=== PATIENT | female | born 1985 | race Caucasian/White ===

== ENCOUNTER 2016-11-23 22:47 | Emergency (ER) | payer MEDICAID ==
[2016-11-23 23:07] VITALS: BP 134/82
== END 2016-11-23 23:55 | disposition left against medical advice (07) ==
LOC: EDSTATUS 22:47 → ER 22:47
DX: Z53.21 Procedure and treatment not carried out due to patient leaving prior to being seen by health care provider (principal)

== ENCOUNTER 2017-02-11 14:45 | Outpatient (CLI) | payer MEDICAID ==
--- NOTE | 2017-02-11 16:01 | Non Stress Test Report ---
Non Stress Test Datetime Report Generated by CPN: 02/11/2017 16:01 DEMOGRAPHIC EGA NST: 35.0 INDICATION Indication for Study: Ordered by Provider Indication for Study (NST) Other: twins VITAL SIGNS Temperature - NST: 98.1 NBPSYS NST: 130 NBPDIA NST: 86 MONITORING Monitor Explained: Monitor Explained; Test Explained; Patient Verbalized Understanding Time on Monitor: 02/11/2017 15:00 Time off Monitor: 02/11/2017 15:45 NST Duration: 45 NST INTERVENTIONS NST Interventions: PO Hydration; Reposition Patient Physician Notified NST: Sue Rogers, CNM BABY A: [id number] BABY A Movement : Present Contraction Frequency : irr FHR Baseline : 130 Accelerations : 15X15 Decelerations : None Variability : Moderate 6-25bpm NST Review: Meets Criteria for Reactive NST NST Review and Verified By : RENNY Campbell Results: Reactive BABY B Movement: Present FHR Baseline: 140 Accelerations: 15X15 Decelerations: None Variability: Moderate 6-25bpm NST Review: Meets Criteria for Reactive NST NST Reviewed And Verified By: RENNY Campbell Results: Reactive NST REPORT Report Trigger: Send Report
== END 2017-02-11 16:05 | disposition home or self-care (01) ==
LOC: LC 14:45
PROVIDERS: ATTEND Obstetrics & Gynecology
PROC: 4A1HXCZ Monitoring of Products of Conception, Cardiac Rate, External Approach (ICD-10-PCS; principal; 2017-02-11)
PROC: 4A1HXCZ Monitoring of Products of Conception, Cardiac Rate, External Approach (ICD-10-PCS; 2017-02-11)
DX: O30.003 Twin pregnancy, unspecified number of placenta and unspecified number of amniotic sacs, third trimester (principal); Z3A.35 35 weeks gestation of pregnancy
CPT/HCPCS: 59025

== ENCOUNTER 2017-02-26 10:37 | Inpatient (IN) | payer MEDICAID ==
[2017-02-26] MEDS ORDERED: RINGERS SOLUTION,LACTATED 1,000 ML IV ONE (11:13)
[2017-02-26] MEDS ORDERED: RINGERS SOLUTION,LACTATED 1,000 ML IV PRN (11:16)
[2017-02-26] MEDS ORDERED: OXYTOCIN/NORMAL SALINE 20 UNIT/1,000 ML RTUINJ IV PRN ×2 (11:16→22:08)
[2017-02-26 11:22] LABS: APPEARANCE,URINE CLEAR; BILIRUBIN,URINE NEGATIVE (NEGATIVE); GLUCOSE, URINE NEGATIVE (NEGATIVE); KETONES,URINE NEGATIVE (NEGATIVE); LEUKOCYTE ESTERASE,URINE TRACE (NEGATIVE); NITRITE,URINE NEGATIVE (NEGATIVE); PROTEIN,URINE NEGATIVE (NEGATIVE); URINE SPECIFIC GRAVITY 1.003; UROBILINOGEN,URINE NEGATIVE mg/dL (<2.0)
[2017-02-26 11:38] LABS: URINE BARBITURATES SCREEN NEGATIVE; URINE METHADONE SCREEN NEGATIVE; URINE OPIATES LOW NEGATIVE; URINE PHENCYCLIDINE SCREEN NEGATIVE
[2017-02-26 12:05] LABS: ABSOLUTE EOSINOPHILS # (AUTO) 0.1 10^3/uL (0.0-0.6); ABSOLUTE LYMPHOCYTES (AUTO) 1.2 10^3/uL (0.5-4.7); ABSOLUTE MONOCYTES (AUTO) 0.6 10^3/uL (0.1-1.4); ABSOLUTE NEUT (AUTO) 4.8 10^3/uL (1.7-8.2); BASOPHILS % (AUTO) 0.4 % (0-2); EOSINOPHILS % (AUTO) 1.1 % (0-6); HEMATOCRIT 27.6 % (36.0-47.0); HEMOGLOBIN 9.2 g/dL (12.0-15.5); LYMPHOCYTES % (AUTO) 17.7 % (13-45); MEAN CORPUSCULAR HEMOGLOBIN 24.4 pg (27.0-33.4); MEAN CORPUSCULAR HGB CONC 33.4 g/dL (32.0-36.0); MEAN CORPUSCULAR VOLUME 73 fl (80-97); MONOCYTES % (AUTO) 9.3 % (3-13); RED BLOOD COUNT 3.78 10^6/uL (3.72-5.28); RED CELL DISTRIBUTION WIDTH 17.3 % (11.5-14.0); SEGMENTED NEUTROPHILS % (AUTO) 71.5 % (42-78); WHITE BLOOD COUNT 6.7 10^3/uL (4.0-10.5)
[2017-02-26] MEDS ORDERED: OXYTOCIN/NORMAL SALINE 0 UNIT/0 ML RTUINJ ONE (12:12)
[2017-02-26 12:25] LABS: ALANINE AMINOTRANSFERASE 25 U/L (9-52); ALKALINE PHOSPHATASE 121 U/L (38-126); ANION GAP 7 (5-19); ASPARTATE AMINO TRANSFERASE 22 U/L (14-36); BILIRUBIN,DIRECT 0.3 mg/dL (0.0-0.4); BILIRUBIN,TOTAL 0.3 mg/dL (0.2-1.3); BLOOD UREA NITROGEN 6 mg/dL (7-20); CALCIUM 8.8 mg/dL (8.4-10.2); CARBON DIOXIDE 22 mmol/L (22-30); CHLORIDE 107 mmol/L (98-107); CREATININE RESULT 0.47 mg/dL (0.52-1.25); GLUCOSE 67 mg/dL (75-110); LDH 395 U/L (313-618); SODIUM 136.1 mmol/L (137-145); TOTAL PROTEIN 5.4 g/dL (6.3-8.2)
[2017-02-26 12:56] LABS: URINE CREATININE 31.5 mg/dL (16-327); URINE PROTEIN 20.7 mg/dL (<12)
[2017-02-26] MEDS ORDERED: FENTANYL/BUPIVACAINE/NS/PF 200 MCG/100 ML RTUINJ EPI ONE (15:54)
[2017-02-26] MEDS ORDERED: EPHEDRINE SULFATE INJ 50 MG/1 ML AMPULE ONE (15:54)
[2017-02-26] MEDS ORDERED: BUPIVACAINE HCL 0.25 % INJ/PF (2.5 MG/1 ML) 30 ML VIAL ONE (15:54)
[2017-02-26] MEDS ORDERED: MISOPROSTOL 0.2 MG TABLET ONE (15:55)
[2017-02-26] MEDS ORDERED: LIDOCAINE 1% INJ-PF (10 MG/ML) 30 ML SDV ONE (15:55)
[2017-02-26] MEDS ORDERED: OXYTOCIN/NORMAL SALINE 20 UNIT/1,000 ML RTUINJ ONE (15:55)
[2017-02-26] MEDS ORDERED: LIDOCAINE 2% INJ-PF (20 MG/ML) 10 ML AMPUL ONE (19:15)
--- NOTE | 2017-02-26 19:16 | L&D Progress Notes ---
PROGRESS NOTES Datetime Report Generated by CPN: 02/26/2017 19:15 PROGRESS NOTE Impression: Normal Progression of Labor Impression: Normal Progression of Labor; Rupture of Membranes Procedures: Sterile Vag Exam Procedures: Sterile Vag Exam Procedures- Other: SROM with SVE Plan: Continue Present Management; Induction Informed Consent Obtained: Vaginal Delivery; Induction of Labor; Risks, Benefits and Alternatives Discussed Vital Signs : Reviewed; Within Normal Limits Comment: US to confirm presentation. Pt just recieved epidural and is comfortable. Cvx change noted. Anticipate . Reviewed risks of TIUP delivery including need for urgent c/s and risk of head entrapment if baby B converts to breech and unable to vert prior to entering canal. Pt verbalized understanding. VAGINAL EXAM Dilatation: 4 Dilatation: 2 Effacement: 60 Effacement: 60 Station: -2 Station: -1 Contractions: q 3-4 Contractions: rare MEMBRANES Membranes: Intact FETUS A FHR - Baseline: 130 Monitoring: External US Variability: Moderate 6-25bpm Accelerations: 15X15 Decelerations: None Estimated Weight (gm): 2800 Presentation: Vertex FETUS B FHR - Baseline: 135 Monitoring: External US Variability: Moderate 6-25bpm Accelerations: 15X15 Decelerations: None FHR Category: Category I FHR Comments: CAT I Estimated Weight (gm): 3000 Presentation: Vertex Presentation: Vertex SIGNATURE SIGNATURE: [id number] SIGNATURE: [id number] Signature: with User ID: [email or web address]
[2017-02-26] MEDS ORDERED: OXYTOCIN 10 UNIT/ML VIAL ONE (19:25)
[2017-02-26] MEDS ORDERED: LOPERAMIDE HCL 2 MG CAPSULE ONE (19:25)
[2017-02-26] MEDS ORDERED: CARBOPROST TROMETHAMINE INJ 250 MCG/1 ML AMPULE ONE (19:26)
--- NOTE | 2017-02-26 21:22 | Delivery Summary ---
Del Sum A-C Datetime Report Generated by CPN: 02/26/2017 21:22 DELIVERY PERSONNEL DELIVERY PERSONNEL: [id number] Delivery Doctor:: Cony George MD Labor and Delivery Nurse:: Aaliyah Stoddard RN Labor and Delivery Nurse:: Radha Trevino RN Automotive Product Specialist:: Marybeth Mckeon RN Nursery Nurse:: Shahida Argueta RN MSN Nursery Nurse:: Angela Ennis RN Metal Fabricator/ARMATURE WINDER REPAIRER: [facility] Metal Fabricator/ARMATURE WINDER REPAIRER: [facility] Additional Personnel: : Jael Torres RN MATERNAL INFORMATION Delivery Anesthesia: Epidural Medications After Delivery: Pitocin Drip 20 Units/1000ml NSS; Other-Please Comment Meds After Delivery Comment: Cytotec 1000mcg per rectum Maternal Complications: Other Other Maternal Complications: Twins LABOR SUMMARY EDC: 03/18/2017 00:00 No. Babies in Womb: 2 Attempted: No Labor Anesthesia: Epidural LABOR INFORMATION Reason for Induction: Other Reason for Induction- Other: DC/DA TIUP (Annotations: Data stored by [facility] on behalf of user) Onset of Labor: 02/26/2017 15:43 Complete Dilatation: 02/26/2017 19:44 Oxytocin: Induction Group B Beta Strep: Negative Antibiotics # of Doses: 0 Steroids Given: None Reason Steroids Not Administered: Not Applicable MEMBRANES Membranes Rupture Method: Spontaneous Rupture of Membranes: 02/26/2017 17:36 Length of Rupture (hr): 2.37 Amniotic Fluid Color: Clear Amniotic Fluid Amount: Small Amniotic Fluid Odor: Normal STAGES OF LABOR Stage 1 hr: 4 Stage 1 min: 1 Stage 2 hr: 0 Stage 2 min: 14 Stage 3 hr: 0 Stage 3 min: 7 Total Time in Labor hr: 4 Total Time in Labor min: 22 VAGINAL DELIVERY Episiotomy: None Laceration Extension #1: N/A Laceration Repair: Not Applicable Sponge Count Correct: N/A Sharps Count Correct: N/A CSECTION DELIVERY Primary Indication: N/A Secondary Indication: N/A CSection Incidence: N/A Labor: N/A Elective: N/A CSection Incision: N/A BABY A INFORMATION Infant Delivery Date/Time: 02/26/2017 19:58 Method of Delivery: Vaginal Born in Route : No : N/A Forceps: N/A Vacuum Extraction: N/A Shoulder Dystocia : No PRESENTATION/POSITION BABY A Presentation: Cephalic Cephalic Presentation: Vertex Vertex Position: Left Occipital Anterior Breech Presentation: N/A PLACENTA INFORMATION BABY A Placenta Delivery Time : 02/26/2017 20:05 Placenta Method of Delivery: Spontaneous Placenta Status: Delivered SCORES BABY A Heart Rate 1 min: >100 bpm Resp Effort 1 min: Good Cry Reflex Irritability 1 min: Cough or Sneeze or Pulls Away Muscle Tone 1 min: Active Motion Color 1 min: Blue/Pale SCORE 1 MIN: 8 Heart Rate 5 min: >100 bpm Resp Effort 5 min: Good Cry Reflex Irritability 5 min: Cough or Sneeze or Pulls Away Muscle Tone 5 min: Active Motion Color 5 min: Body [place], Extremities Blue SCORE 5 MIN: 9 INFORMATION BABY A Gestational Age at Delivery: 37.1 Gestational Status: Early Term- 37- 38.6 Weeks Infant Outcome : Liveborn Infant Condition : Stable Infant Sex: Female IDENTIFICATION BABY A Infant Verification Date/Time: 02/26/2017 20:32 ID Band Number: [id number] Mother's Name Verified: Yes Infant RN Verifying Infant: R Kimble, RNC Additional Verifying Personnel: E Linda, RN WEIGHT/LENGTH BABY A Infant Birthweight (gm): 2160 Infant Weight (lb): 4 Infant Weight (oz): 12 Infant Length (in): 18.00 Length (cm): 45.72 CORD INFORMATION BABY A No. Cord Vessels: 3 Nuchal Cord : N/A Nuchal Cord- Other: Loose body cord and leg x 1 Cord Blood Taken: Yes-For Eval (Mom's Blood Type - or O+) Infant Suction: Mouth; Nose ASSESSMENT BABY A Complications: None Physical Findings at Delivery: Within Normal Limits Infant Respirations: Appears Normal Java Technical Manager/ALS Called : No Care By: Delroy Torres RN/ Guerda Ennis RN Transferred To: Nursery BABY B INFORMATION Delivery Date/Time: 02/26/2017 20:02 Method of Delivery : Vaginal Born in Route : No : N/A Forceps : N/A Vacuum Extraction: N/A Shoulder Dystocia : No SHOULDER DYSTOCIA BABY B Infant Delivery Date/Time: 02/26/2017 20:02 PRESENTATION/POSITION BABY B Presentation : Cephalic Cephalic Position : Vertex Vertex Position: Left Occipital Anterior Breech Position: N/A ROM/PLACENTA INFO BABY B Rupture of Membranes: 02/26/2017 20:01 Length of Rupture (hr): 0.02 Placenta Delivery Time : 02/26/2017 20:05 Placenta Method of Delivery: Spontaneous Placental Status : Delivered SCORES BABY B Heart Rate 1 min: >100 bpm Resp Effort 1 min: Good Cry Reflex Irritability 1 min: Cough or Sneeze or Pulls Away Muscle Tone 1 min: Active Motion Color 1 min: Blue/Pale SCORE 1 MIN: 8 Heart Rate 5 min: >100 bpm Resp Effort 5 min: Good Cry Reflex Irritability 5 min: Cough or Sneeze or Pulls Away Muscle Tone 5 min: Active Motion Color 5 min: Body [place], Extremities Blue SCORE 5 MIN: 9 INFANT INFORMATION BABY B Gestational Age at Delivery: 37.1 Gestational Status : Early Term- 37- 38.6 Weeks Infant Outcome : Liveborn Infant Condition : Stable Sex : Male IDENTIFICATION BABY B Verification Date/Time: 02/26/2017 20:31 ID Band Number : [id number] Mother's Name Verified: Yes Infant RN Verifying : Byron Kimble, RNC Additional Verifying Personnel: Melanie Mckeon, RN WEIGHT/LENGTH BABY B Infant Birthweight (gm): 2480 Weight (lb) : 5 Weight (oz): 7 Infant Length (in): 18.00 Length (cm): 45.72 CORD INFORMATION BABY B No. Cord Vessels : 3 Nuchal Cord : N/A Cord Blood Taken : Yes-For Eval (Mom's Blood Type -) Infant Suction : Mouth; Nose ASSESSMENT BABY B Infant Complications : None Physical Findings at Delivery: Within Normal Limits Infant Respirations : Appears Normal Java Technical Manager/ALS Called : No Infant Care By : Guerline Argueta RN Transfer To: [facility]
[2017-02-26] MEDS ORDERED: MEASLES,MUMPS&RUBELLA VACC/PF 0.5 ML VIAL SUBCUT PRN (22:08)
[2017-02-26] MEDS ORDERED: PSEUDOEPHEDRINE HCL 30 MG TABLET PO PRN (22:08)
[2017-02-26] MEDS ORDERED: PROMETHAZINE HCL 25 MG TABLET PO PRN (22:08)
[2017-02-26] MEDS ORDERED: PROMETHAZINE HCL 25 MG SUPP.RECT PR PRN (22:08)
[2017-02-26] MEDS ORDERED: MAGNESIUM HYDROXIDE SUSP 30 ML UDCUP PO PRN (22:08)
[2017-02-26] MEDS ORDERED: BENZOCAINE/MENTHOL AEROSOL SPRAY 56 ML TOP PRN (22:08)
[2017-02-26] MEDS ORDERED: ZOLPIDEM TARTRATE 5 MG TABLET PO PRN (22:08)
[2017-02-26] MEDS ORDERED: PROMETHAZINE HCL INJ 25 MG/1 ML VIAL IV PRN (22:08)
[2017-02-26] MEDS ORDERED: NA PHOS,M-B/NA PHOS,DI-BA (ADULT) 133 ML ENEMA PR PRN (22:08)
[2017-02-26] MEDS ORDERED: DIBUCAINE 1% OINTMENT 28 GM TP PRN (22:08)
[2017-02-26] MEDS ORDERED: DIPHENHYDRAMINE HCL 25 MG CAPSULE PO PRN (22:08)
[2017-02-26] MEDS ORDERED: GLYCERIN/WITCH HAZEL LEAF 1 EACH MED..PAD TP PRN (22:08)
[2017-02-26] MEDS ORDERED: ACETAMINOPHEN 650 MG SUPP.RECT PR PRN (22:08)
[2017-02-26] MEDS ORDERED: DIPH/PERTUSS(ACELL)/TETANUS VAC/PF 0.5 ML SYR (>=10YO) IM PRN (22:08)
[2017-02-26] MEDS ORDERED: IBUPROFEN 800 MG TABLET ONE (22:10)
--- NOTE | 2017-02-26 22:30 | Admission Physical ---
Datetime Report Generated by CPN: 02/26/2017 22:29 CURRENT ADMISSION Hx Assessment: The History has been Reviewed and is Current Chief Complaint: Sent from OB Office for Evaluation and Treatment - Please Specify Chief Complaint Other: sent from [facility] Indication for Induction: Other Indication for Induction: Term, Intrauterine ; No Active Labor Indication for Induction- Other: Di-Di twins Admit Plan: Admit to Unit; Initiate Labor Induction Protocol ALLERGIES Medication Allergies: Yes Medication Allergies: codeine/Vomiting (02/26/2017); clarithromycin (02/26/2017) Medication Allergies: codeine (01/05/2016); clarithromycin (01/05/2016) Latex: No Latex Allergies Food Allergies: n/a Environmental Allergies: dust, pollen OBSTETRICAL HISTORY EDC: 03/18/2017 00:00 : 7 Para: 5 Term: 5 : 0 SAB: 1 IAB: 0 Ectopic: 0 Livin Cesareans: 0 VBACs: 5 Multiple Births: 0 Gestational Diabetes: Unknown Rh Sensitization: No Incompetent Cervix: No FAITH: No Infertility: No ART Treatment: No Uterine Anomaly: No IUGR: No Hx Previous C/S: No Macrosomia: No Hx Loss/Stillborn: No PIH: No Hx : No Placenta Previa/Abruption: No Depression/PP Depression: No PTL/PROM: No Post Hemorrhage: No Current Procedures: Ultrasound; NST; BPP SEE RECORDS Alcohol: No Marijuana : No Cocaine: No Other Illicit Drugs: No Cigarettes: Never Smoker. [id number] MEDICAL HISTORY Diabetes: Unknown Diabetes Type: Gestational Diabetes Blood Transfusion: No Pulmonary Disease (Asthma, TB): No Breast Disease: No Hypertension: No Risk And Insurance Consultant Surgery: No Heart Disease: No Hosp/Surgery: Yes Autoimmune Disorder: No Anesthetic Complications: No Kidney Disease: No Abnormal Pap Smear: No Neuro/Epilepsy: No Psychiatric Disorders: No Other Medical Diseases: No Hepatitis/Liver Disease: No Significant Family History: No Varicosities/Phlebitis: Yes Trauma/Violence : No Thyroid Dysfunction: No Medical History Comments: hospitalizations for 5 deliveries, 1 gallbladder removal INFECTIOUS HISTORY Gonorrhea: No Genital Herpes: No Chlamydia: No Tuberculosis: No Syphilis: No Hepatitis: No HIV/AIDS Exposure: No Rash or Viral Illness: No HPV: No PHYSICAL EXAM General: Normal HEENT: Normal Neurologic: Normal Thyroid: Normal Heart: Normal Lungs: Normal Breast: Normal Back: Normal Abdomen: Normal Genitourinary Exam: Normal Extremities: Normal DTRs: Normal Pelvic Type: Adequate Physical Exam Comments: pelvis proven 7lbs 15oz Vital Signs: Reviewed Details Vital Signs: elevate bp's at mfm VAGINAL EXAM Dilatation: 7 Dilatation: 4 Dilatation: 2 Effacement: 85 Effacement: 60 Effacement: 60 Station: 1 Station: -2 Station: -1 Contraction Comments: q1 -3 Contraction Comments: q 3-4 Contraction Comments: rare MEMBRANES Membranes: Ruptured Membranes: Intact Amniotic Fluid Color: Clear FETUS A EGA: 37.1 Monitoring: External US FHR- Baseline: 135 Variability: Moderate 6-25bpm Accelerations: 15X15 Decelerations: None FHR Category: Category I Estimated Weight (gm): 2800 Presentation: Vertex Admit Comment: Pt sent over from [facility] for elevated bp, plan for delivery, twin A bpp 6/8, twin b bpp 8/8 Di-Di twins vertex/vertex position Limited care, grandmultip [id number] tx gdm gbs neg Pitocin per protocol FETUS B Monitoring: External US Monitoring: External US Monitoring: External US Monitoring: External US Monitoring: External US Monitoring: External US Monitoring: External US Monitoring: External US Monitoring: External US Monitoring: External US Monitoring: External US Monitoring: External US Monitoring: External US Monitoring: External US Monitoring: External US Monitoring: External US Monitoring: External US Monitoring: External US Monitoring: External US Monitoring: External US Monitoring: External US Monitoring: External US Monitoring: External US Monitoring: External US Monitoring: External US Monitoring: External US Monitoring: External US Variability: Moderate 6-25bpm Accelerations: 15X15 Decelerations: None FHR Category: Category I Estimated Weight (gm): 3000 Presentation: Vertex Presentation: Vertex Presentation: Vertex PLANS FOR LABOR AND DELIVERY Labor and Delivery: None Pain Management: Natural Feeding Preference: Breast Benefit of Breast Feed Discussed: Yes Circumcision: No INFORMED CONSENT Informed Consent Obtained: Vaginal Delivery; Risks, Benefits and Alternatives Discussed Informed Consent Obtained: Vaginal Delivery; Induction of Labor; Risks, Benefits and Alternatives Discussed Assignment: Cony George MD Signature: with User ID: [email or web address] : with User ID: [email or web address]
[2017-02-27] MEDS: IBUPROFEN 800 MG TABLET PO SCH ×3 (06:06→21:01)
[2017-02-27 08:13] LABS: HEMATOCRIT 26.7 % (36.0-47.0); HGB HCT DIFFERENCE 0.3; MEAN CORPUSCULAR HEMOGLOBIN 24.5 pg (27.0-33.4); MEAN CORPUSCULAR HGB CONC 33.7 g/dL (32.0-36.0); MEAN CORPUSCULAR VOLUME 73 fl (80-97); RED BLOOD COUNT 3.68 10^6/uL (3.72-5.28); RED CELL DISTRIBUTION WIDTH 17.1 % (11.5-14.0); WHITE BLOOD COUNT 9.3 10^3/uL (4.0-10.5)
[2017-02-27] MEDS: DOCUSATE SODIUM 100 MG CAPSULE PO SCH ×2 (09:17→18:00)
[2017-02-27] MEDS: FERROUS SULFATE 325 MG TABLET PO SCH ×2 (09:18→18:00)
[2017-02-27] MEDS: SENNOSIDES/DOCUSATE 8.6-50 MG 1 EACH TABLET PO SCH (09:18)
[2017-02-27] MEDS: PRENATAL VITAMIN W-O CA NO5/FE FUMARATE/FA CAPSULE PO SCH (09:19)
[2017-02-27] MEDS: FAMOTIDINE 20 MG TABLET PO SCH ×2 (09:19→21:00)
--- NOTE | 2017-02-27 12:58 | PDOC PROGRESS REPORT ---
Subjective-OB Subjective: Post Delivery Day: 31 year old. Denies any needs at this time. Pt doing well, no complaints. She is baby. Reports light bleeding, regular diet and voiding without difficulty. Physical Exam (OB) Vital Signs: Temp Pulse Resp BP Pulse Ox 98.0 F 73 18 133/84 H 98 02/27/17 08:00 02/27/17 07:51 02/27/17 07:51 02/27/17 07:51 02/27/17 07:51 Intake & Output 02/26/17 02/27/17 02/28/17 06:59 06:59 06:59 Intake Total 800 Output Total 2 Balance 798 Weight 77.6 kg - Lochia Lochia Amount: Small 10-25 ml Lochia Color: Rubra/Red - Abdomen Description: Soft, Round Hernia Present: No Fundal Description: Firm, Midline Fundal Height: u/u - u/2 Objective-Diagnostic Laboratory: 02/27/17 07:27 02/26/17 11:33 02/27/17 07:27 WBC 9.3 RBC 3.68 L Hgb 9.0 L Hct 26.7 L MCV 73 L MCH 24.5 L MCHC 33.7 RDW 17.1 H Plt Count 203
[2017-02-28] MEDS: IBUPROFEN 800 MG TABLET PO SCH ×2 (06:24→13:51)
[2017-02-28] MEDS: SENNOSIDES/DOCUSATE 8.6-50 MG 1 EACH TABLET PO SCH (09:29)
[2017-02-28] MEDS: DOCUSATE SODIUM 100 MG CAPSULE PO SCH ×2 (09:29→17:46)
[2017-02-28] MEDS: FAMOTIDINE 20 MG TABLET PO SCH (09:30)
[2017-02-28] MEDS: PRENATAL VITAMIN W-O CA NO5/FE FUMARATE/FA CAPSULE PO SCH (09:30)
[2017-02-28] MEDS: FERROUS SULFATE 325 MG TABLET PO SCH ×2 (09:30→17:46)
--- NOTE | 2017-02-28 10:25 | PDOC DISCHARGE SUMMARY ---
Final Diagnosis Discharge Date: 02/28/17 - Final Diagnosis (1) Twin delivered vaginally Is this a current diagnosis for this admission?: Yes Discharge Data - Discharge Medication Home Medications: Omeprazole Magnesium [Prilosec Otc] 20 mg PO PRN PRN 02/26/17 Prenat 115/Iron Fum/Folic/Dss [ 19 Tablet] 1 each PO DAILY 02/26/17 Docusate Sodium [Colace 100 mg Capsule] 100 mg PO BID #60 capsule 02/28/17 Ferrous Sulfate [Feosol 325 mg Tablet] 325 mg PO BID #60 tablet 02/28/17 Ibuprofen [Motrin 800 mg Tablet] 800 mg PO Q8 #60 tablet 02/28/17 Gestational Age: 37.1 Reason(s) for Admission: Induction of Labor, Twins Procedures: NST Intrapartum Procedure(s): Spontaneous Vaginal Delivery - Craig Data Baby 1 Female at 1 minute: 8 at 5 minutes: 9 Weight: 2160 kg Home with Mother: Yes Complications: No Baby 2 Male at 1 minute: 8 at 5 minutes: 9 Weight: 2480 kg Home with Mother: Yes Complications: No - Diagnosis Test Laboratory: Temp Pulse Resp BP Pulse Ox 97.9 F 69 15 121/69 99 02/28/17 07:34 02/28/17 07:34 02/28/17 07:34 02/28/17 07:34 02/28/17 07:34 02/26/17 02/26/17 02/27/17 10:50 11:33 07:27 RBC 3.78 3.68 L Hgb 9.2 L 9.0 L Hct 27.6 L 26.7 L Urine Opiates Screen NEGATIVE - Discharge information/Instructions Discharge Activity: Activity As Tolerated, Pelvic Rest, No tub bath Discharge Diet: Regular Disposition: HOME, SELF-CARE Follow up with: [facility] in: 1 - bp check, Weeks
[2017-02-28 16:52] VITALS: BP 120/74
--- NOTE | 2017-03-06 21:13 | Delivery Summary ---
Del Sum A-C Datetime Report Generated by CPN: 03/06/2017 21:12 DELIVERY PERSONNEL DELIVERY PERSONNEL: [id number] Delivery Doctor:: Cony George MD Labor and Delivery Nurse:: Aaliyah Stoddard RN Labor and Delivery Nurse:: Radha Trevino RN Roulette Dealer:: Marybeth Mckeon RN Nursery Nurse:: Shahida Argueta RN MSN Nursery Nurse:: Angela Ennis RN Sorter Upholstery Parts/ANIMAL ECOLOGIST: [facility] Sorter Upholstery Parts/ANIMAL ECOLOGIST: [facility] Additional Personnel: : Jael Torres RN MATERNAL INFORMATION Delivery Anesthesia: Epidural Medications After Delivery: Pitocin Drip 20 Units/1000ml NSS; Other-Please Comment Meds After Delivery Comment: Cytotec 1000mcg per rectum Estimated Blood Loss (ml): 300 Maternal Complications: Other Other Maternal Complications: Twins Provider Comments: Called to patients room and patient noted to be complete/complete/+2. Patient taken [facility] operating room for delivery of DC/DA TIUP. OR team and anesthesia and NICU notified. After completion of positioning cvx c/c/+4. VFI then easily delivered from cephalic presentation MILY. No nuchal but body and right leg cord. Shoulders and body delivered w/o difficulty. Cord doubly clamped and cut and to NICU personnel. SVE performed with Baby vertex presentation noted. AROM performed and pitocin increased to 20units. Pt then quickly delivered VMI in Direct OA presentation. No nuchal cord. SHoulders and body delivered without difficulty. COrd doubly clamped and cut and infant to warmer. Placentas times 2 easily delivered spontaneously intact. One clamp placed on baby A cord. Two clamps on Baby B cord. Uterine exploration negative for retained products. FF at U. 1000mcg cytotec placed per rectum due to grand multip and twin delivery. Good hemostasis. No e/o uterine atony. No perineal lacerations. Baby A time of 1957, girl, Apgars 8/9, weight 4#12oz. Baby B, male, time of 2001, Weight 5#7oz, Apgars 8/9. Mother and babies stable upon provider leaving the room. LABOR SUMMARY EDC: 03/18/2017 00:00 No. Babies in Womb: 2 Attempted: No Labor Anesthesia: Epidural LABOR INFORMATION Reason for Induction: Other Reason for Induction- Other: DC/DA TIUP (Annotations: Data stored by N on behalf of user) Onset of Labor: 02/26/2017 15:43 Complete Dilatation: 02/26/2017 19:44 Oxytocin: Induction Group B Beta Strep: Negative Antibiotics # of Doses: 0 Steroids Given: None Reason Steroids Not Administered: Not Applicable MEMBRANES Membranes Rupture Method: Spontaneous Membranes Rupture Method: Spontaneous Rupture of Membranes: 02/26/2017 17:36 Rupture of Membranes: 02/26/2017 17:36 Rupture of Membranes: 02/26/2017 17:36 Length of Rupture (hr): 2.37 Length of Rupture (hr): 2.37 Length of Rupture (hr): 2.37 Amniotic Fluid Color: Clear Amniotic Fluid Color: Clear Amniotic Fluid Amount: Small Amniotic Fluid Amount: Moderate Amniotic Fluid Odor: Normal Amniotic Fluid Odor: Normal STAGES OF LABOR Stage 1 hr: 4 Stage 1 min: 1 Stage 2 hr: 0 Stage 2 min: 14 Stage 3 hr: 0 Stage 3 min: 7 Total Time in Labor hr: 4 Total Time in Labor min: 22 VAGINAL DELIVERY Episiotomy: None Laceration #1: None Laceration Extension #1: N/A Laceration Repair: Not Applicable Sponge Count Correct: N/A Sharps Count Correct: N/A CSECTION DELIVERY Primary Indication: N/A Secondary Indication: N/A CSection Incidence: N/A Labor: N/A Elective: N/A CSection Incision: N/A BABY A INFORMATION Infant Delivery Date/Time: 02/26/2017 19:58 Method of Delivery: Vaginal Born in Route : No : N/A Forceps: N/A Vacuum Extraction: N/A Shoulder Dystocia : No PRESENTATION/POSITION BABY A Presentation: Cephalic Cephalic Presentation: Vertex Vertex Position: Left Occipital Anterior Breech Presentation: N/A PLACENTA INFORMATION BABY A Placenta Delivery Time : 02/26/2017 20:05 Placenta Method of Delivery: Spontaneous Placenta Status: Delivered SCORES BABY A Heart Rate 1 min: >100 bpm Resp Effort 1 min: Good Cry Reflex Irritability 1 min: Cough or Sneeze or Pulls Away Muscle Tone 1 min: Active Motion Color 1 min: Blue/Pale SCORE 1 MIN: 8 Heart Rate 5 min: >100 bpm Resp Effort 5 min: Good Cry Reflex Irritability 5 min: Cough or Sneeze or Pulls Away Muscle Tone 5 min: Active Motion Color 5 min: Body [place], Extremities Blue SCORE 5 MIN: 9 INFORMATION BABY A Gestational Age at Delivery: 37.1 Gestational Status: Early Term- 37- 38.6 Weeks Outcome : Liveborn Infant Condition : Stable Infant Sex: Female IDENTIFICATION BABY A Verification Date/Time: 02/26/2017 20:32 ID Band Number: [id number] Mother's Name Verified: Yes RN Verifying : Byron Kimble RNC Additional Verifying Personnel: E Linda, RN WEIGHT/LENGTH BABY A Infant Birthweight (gm): 2160 Weight (lb): 4 Weight (oz): 12 Length (in): 18.00 Length (cm): 45.72 CORD INFORMATION BABY A No. Cord Vessels: 3 Nuchal Cord : N/A Nuchal Cord- Other: Loose body cord and leg x 1 Cord Blood Taken: Yes-For Eval (Mom's Blood Type - or O+) Suction: Mouth; Nose ASSESSMENT BABY A Complications: None Physical Findings at Delivery: Within Normal Limits Respirations: Appears Normal Skin to Skin: No Strapper Operator/ALS Called : No Infant Care By: Delroy Torres RN/ Guerda Ennis RN Transferred To: Nursery BABY B INFORMATION Delivery Date/Time: 02/26/2017 20:02 Method of Delivery : Vaginal Born in Route : No : N/A Forceps : N/A Vacuum Extraction: N/A Shoulder Dystocia : No SHOULDER DYSTOCIA BABY B Delivery Date/Time: 02/26/2017 20:02 PRESENTATION/POSITION BABY B Presentation : Cephalic Cephalic Position : Vertex Vertex Position: Left Occipital Anterior Breech Position: N/A ROM/PLACENTA INFO BABY B Rupture of Membranes: 02/26/2017 20:01 Length of Rupture (hr): 0.02 Placenta Delivery Time : 02/26/2017 20:05 Placenta Method of Delivery: Spontaneous Placental Status : Delivered SCORES BABY B Heart Rate 1 min: >100 bpm Resp Effort 1 min: Good Cry Reflex Irritability 1 min: Cough or Sneeze or Pulls Away Muscle Tone 1 min: Active Motion Color 1 min: Blue/Pale SCORE 1 MIN: 8 Heart Rate 5 min: >100 bpm Resp Effort 5 min: Good Cry Reflex Irritability 5 min: Cough or Sneeze or Pulls Away Muscle Tone 5 min: Active Motion Color 5 min: Body [place], Extremities Blue SCORE 5 MIN: 9 INFORMATION BABY B Gestational Age at Delivery: 37.1 Gestational Status : Early Term- 37- 38.6 Weeks Outcome : Liveborn Condition : Stable Infant Sex : Male IDENTIFICATION BABY B Verification Date/Time: 02/26/2017 20:31 ID Band Number : [id number] Mother's Name Verified: Yes Infant RN Verifying : Byron Kimble RNC Additional Verifying Personnel: Melanie Mckeon RN WEIGHT/LENGTH BABY B Infant Birthweight (gm): 2480 Infant Weight (lb) : 5 Infant Weight (oz): 7 Infant Length (in): 18.00 Length (cm): 45.72 CORD INFORMATION BABY B No. Cord Vessels : 3 Nuchal Cord : N/A Cord Blood Taken : Yes-For Eval (Mom's Blood Type -) Suction : Mouth; Nose ASSESSMENT BABY B Infant Complications : None Physical Findings at Delivery: Within Normal Limits Respirations : Appears Normal Skin to Skin: No Strapper Operator/ALS Called : No Infant Care By : Guerline Argueta RN Transfer To: Nursery SIGNATURES Signature: with User ID: [email or web address]
== END 2017-02-28 19:00 | disposition home or self-care (01) | DRG 775 ==
LOC: LC 10:37 → LR 11:25 → 2S 22:28
PROVIDERS: ADMIT Student in an Organized Health Care Education/Training Program; ATTEND Student in an Organized Health Care Education/Training Program
PROC: 10E0XZZ Delivery of Products of Conception, External Approach (ICD-10-PCS; principal; 2017-02-26)
PROC: 3E033VJ Introduction of Other Hormone into Peripheral Vein, Percutaneous Approach (ICD-10-PCS; 2017-02-26)
PROC: 4A1HXCZ Monitoring of Products of Conception, Cardiac Rate, External Approach (ICD-10-PCS; 2017-02-26)
DX: O69.82X0 Labor and delivery complicated by other cord entanglement, without compression, not applicable or unspecified (principal); O30.043 Twin pregnancy, dichorionic/diamniotic, third trimester; Z28.21 Immunization not carried out because of patient refusal; Z88.3 Allergy status to other anti-infective agents; Z88.6 Allergy status to analgesic agent; Z3A.37 37 weeks gestation of pregnancy; Z37.2 Twins, both liveborn
CPT/HCPCS: 36415; 80053; 80307; 81001; 82570; 83615; 84156; 84550; 85025; 85027; 86592; 86850; 86900; 86901; 88307; J2590; J3490